=== PATIENT | female | born 1950 | race Caucasian/White ===

== ENCOUNTER → 2023-11-27 17:29 | Outpatient (REF) | payer MEDICARE, BC, SELFPAY | LOC: WDC 17:29 | PROVIDERS: ATTENDING PHYSICIAN Family Medicine | DX: Z12.31 Encounter for screening mammogram for malignant neoplasm of breast (principal) | CPT/HCPCS: 77063; 77067 ==

== ENCOUNTER → 2023-12-30 07:27 | Outpatient (REF) | payer MEDICARE, BC, SELFPAY ==
[2023-12-30 08:25] LABS: % Basophils 1.5 % (0-2); % Eosinophils 2.5 % (0-6); % Immature Granulocytes 0.2 % (0-0.5); % Lymphocytes 32.3 % (20.5-51.1); % Monocytes 6.1 % (1.7-9.3); % Neutrophils 57.4 % (42.2-75.2); Absolute Basophils 0.1 10^3/uL (0-0.2); Absolute Eosinophils 0.1 10^3/uL (0-0.7); Absolute Lymphocytes 1.5 10^3/uL (1.2-3.4); Absolute Monocytes 0.3 10^3/uL (0.1-0.6); Absolute Neutrophils 2.7 10^3/uL (1.4-6.5); Hemoglobin 13.3 g/dL (12.0-16.0); Mean Corp Hgb Conc. 33.3 g/dL (33.0-37.0); Mean Corpuscular Hgb 30.4 pg (27.0-31.0); Mean Corpuscular Volume 91.3 fL (81.0-99.0); Mean Platelet Volume 9.9 fL (7.4-10.4); Nucleated Red Blood Cells % 0 %; Platelet Count 318 10^3/uL (130-400); Red Blood Cell Count 4.38 10^6/uL (4.20-5.40); Red Cell Dist. Width 13.2 % (11.5-14.5); White Blood Cell Count 4.7 10^3/uL (4.8-10.8)
[2023-12-30 09:03] LABS: ALT (SGPT) 22 U/L (0-35); AST (SGOT) 26 U/L (14-36); Albumin 4.1 g/dl (3.5-5.0); Alkaline Phosphatase 64 U/L (38-126); Blood Urea Nitrogen 18 mg/dl (7-17); Calcium 9.9 mg/dl (8.4-10.2); Carbon Dioxide 29 mmol/L (22-30); Chloride 105 mmol/L (98-107); Glucose 91 mg/dl (70-99); HDL Cholesterol 61 mg/dl; LDL Cholesterol, Calculated 111 mg/dl; Sodium 141 mmol/L (135-145); Total Bilirubin 0.4 mg/dl (0.2-1.3); Total Cholesterol 187 mg/dl (50-199); Total Protein 6.4 g/dl (6.3-8.2); Triglyceride 79 mg/dl (10-149); Very Low Density Lipoprotein 15 mg/dl (0-30); eGFR > 60.00
[2023-12-30 09:37] LABS: TSH Reflex To Free T4 1.57 uIU/ml (0.47-4.68)
== END ==
LOC: REG 07:27
PROVIDERS: ATTENDING PHYSICIAN Family Medicine
DX: E78.2 Mixed hyperlipidemia (principal); R53.83 Other fatigue
CPT/HCPCS: 36415; 80053; 80061; 84443; 85025

== ENCOUNTER → 2024-01-23 08:19 | Outpatient (REF) | payer MEDICARE, BC, SELFPAY | LOC: RAD 08:19 | PROVIDERS: ATTENDING PHYSICIAN Family Medicine | DX: Z78.0 Asymptomatic menopausal state (principal) | CPT/HCPCS: 77080 ==

== ENCOUNTER 2024-08-19 16:32 | Emergency (ER) | payer OTHER, SELFPAY ==
[2024-08-19 16:38] VITALS: BP 158/81
--- NOTE | 2024-08-19 16:46 | ED.GENMED ---
ED Provider Triage
-
Patient seen by provider in Triage?: Seen in Triage
Attestation: A medical screening examination has been initiated by a qualified medical provider. Based on the assessment performed at this time, it has been determined that an emergent medical condition may exist and the patient has been informed
that further medical evaluation and possible additional diagnostic testing may be needed.
HPI: 74-year-old female presents to the ER complaining of left groin pain. She denies any injury but noticed over the past several days her left leg has been giving out and over the weekend got worse. She does feel pain in her left groin that is
not made worse with movement. She denies any obvious swelling. She denies any pain in her back. She denies any abdominal pain nausea vomiting. She denies any frequency urgency or dysuria.
Will obtain left hip and pelvis x-ray
GENERAL: Alert , in no apparent distress
EYE: No visual abnormalities.
NECK: Trachea midline
ENT: No visible abnormalities.
LUNGS: No acute respiratory distress
NEUROLOGICAL: Alert and oriented
SKIN: Skin intact. No visible changes.
MUSCULOSKELETAL: Moving extremities normally
PSYCH: Normal and appropriate interaction.
This is a medical evaluation conducted in person to initiate diagnostic evaluation and provide initial therapeutics. Please see further documentation by the treating clinician.
History of Present Illness
General
Chief Complaint: Musculo-Skeletal Complaint
Source: patient
Exam Limitations: none
Time Seen by Provider: 08/19/24 18:31
Nursing documentation reviewed up to this point in time: agreed with
History of Present Illness
History of Present Illness:
74 yr old female presents to the ER complaint of left groin pain intermittently for past 10d. She has minimal discomfort but reports leg will ' just give out.' She denies any injury fever chills swelling. She denies any redness fevers. She
denies any numbness tingling to lower leg. Denies any back pain.
Past History
Past History
ED Past Medical History: CVA, Seizures (Atypical seizure disorder) and Other (Crohn's disease, gout,, retinitis pigmentosa, glaucoma, Gi bleedinig)
ED Past Surgical History: None
Social History
Tobacco: Non-smoker
Alcohol: None
Personal:
Living: with family
Family History
Family History: CAD and Other (Her mother had a stroke at 62 and there is history of coronary disease in the family)
Review of Systems
Review of Systems
Allergies reviewed?: Yes
Constitutional: Reports no symptoms; Denies fever, fatigue or chills
Musculoskeletal: Reports other (intermittent mild discomfort in left groin )
Skin: Reports no symptoms
Neurological: Reports no symptoms
Hematologic/Lymphatic: Reports no symptoms
Psychiatric: Reports no symptoms
Phy Exam
General Physical Exam
General Presentation: no apparent distress
General Skin: warm and dry
General Habitus: normal
General Mental: alert
General Hydration: appears well hydrated
Neurological Exam
Neurological Exam: alert and oriented x3
Musculoskeletal Exam
Musculoskeletal Exam: other (lle with strong pulses ; no pain with ROM, full internal and external rotation of hip; no erythema no swelling to area ; nml distal senation , full strength to left leg )
Skin Exam
Skin Exam: normal color and warm/dry
Psychiatric Exam
Psychiatric Exam: normal mood/affect
Course
Orders/Labs/Results
Orders:
Orders
08/19/24 16:46
Hip, Left 2-3 Views [CR Hip - LT w/wo Pel 2-3 Vw*] Urgent
Comment:
Reason For Exam: left groin pain
Include a pelvis x-ray?: Yes
Vital Signs
Initial and Last Documented VS:
Initial Vital Signs
Temp Pulse Resp BP Pulse Ox
98.3 F 80 16 158/81 98
08/19/24 16:38 08/19/24 16:38 08/19/24 16:38 08/19/24 16:38 08/19/24 16:38
Last Documented Vital Signs
Temp Pulse Resp BP Pulse Ox
98.3 F 80 16 158/81 98
08/19/24 16:38 08/19/24 16:38 08/19/24 16:38 08/19/24 16:38 08/19/24 16:38
MDM/Problems Addressed
MDM/Problems Addressed:
Patient complains of mild discomfort in left groin intermittently for the past several days, she does report sometimes left leg gives out.
Denies any recent trauma fever or chills. She is in no acute distress nontoxic appearing x-rays are negative for acute fracture. She has good range of motion to left hip including normal internal/external rotation but no obvious swelling strong
distal pulses
Considerations include possible labrum injury, arthritis will DC with Ortho follow-up
*Radiology
Radiology exam reviewed: radiology read reviewed
*Critical Care Note
Total Time (30-74mins, 75-104mins- exclusive of procedures): Not Applicable
ED Attending Note
-
Portions of this chart may have been created with voice recognition software.� Occasional wrong word or��sound alike� substitutions may have occurred due to the inherent limitations of voice recognition software.
Discharge Plan
Departure
Patient Disposition: Home (Routine Discharge)
Date of Disposition: 08/19/24
Time of Disposition: 18:35
Patient with high blood pressure during this ER visit?: No
Condition: Fair
Discharge Problem:
Groin pain
Instructions: Muscle and Bone Pain (DC), BLOOD PRESSURE
Prescriptions:
No Action
furosemide 40 MG tablet
40 mg PO BID
Patient Comments:
pt. states that this medication is ordered BID but she only takes it PRN.
lacosamide [Vimpat] 100 MG tablet
150 mg PO BID
aspirin 81 MG tablet,chewable
81 mg PO DAILY
Patient Comments:
as needed
lorazepam 1 MG tablet
1 mg PO PRN PRN (Reason: post seizures)
vitamin B complex 1 EACH tablet
1 tab PO DAILY
Fish Oil/Dha/Epa
1 tab PO DAILY
calcium carbonate-vitamin D3 [Oyster Shell Calcium-Vit D3] 500 MG tablet
1 tab PO BID
ibuprofen 600 MG tablet
600 mg PO
levofloxacin 500 MG tablet
500 mg PO DAILY Qty: 4 0RF
Referrals:
Johnny Gresham MD [Active] -
Activity Restrictions/Additional Instructions:
Follow up with orthopedic doctor in the next several days.
Yoy may take Ibuprofen /tylenol as needed.
Return if any worsening of symptoms.
Interventions
Interventions:
*Risk Screen - Suicide Last Done: 08/19/24 16:38
*Neglect/Abuse Screening Last Done: 08/19/24 16:38
Discharge Date and Time
Print Language: ROMANSH
== END 2024-08-19 18:51 | disposition home or self-care (01) ==
LOC: EMR 16:32
PROVIDERS: EMERGENCY PHYSICIAN Emergency Medicine; FAMILY PHYSICIAN Family Medicine
DX: R10.32 Left lower quadrant pain (principal); Z86.73 Personal history of transient ischemic attack (TIA), and cerebral infarction without residual deficits; Z87.19 Personal history of other diseases of the digestive system
CPT/HCPCS: 99283; 73502

== ENCOUNTER → 2024-11-27 17:35 | Outpatient (REF) | payer OTHER, SELFPAY | LOC: WDC 17:35 | PROVIDERS: ATTENDING PHYSICIAN Family Medicine | DX: Z12.31 Encounter for screening mammogram for malignant neoplasm of breast (principal) | CPT/HCPCS: 77063; 77067 ==

== ENCOUNTER → 2025-03-06 08:35 | Outpatient (REF) | payer OTHER, SELFPAY ==
[2025-03-06 09:33] LABS: Hematocrit 42.2 % (37.0-47.0); Hemoglobin 13.9 g/dL (12.0-16.0); Mean Corp Hgb Conc. 32.9 g/dL (33.0-37.0); Mean Corpuscular Volume 92.1 fL (81.0-99.0); Nucleated Red Blood Cells % 0 %; Platelet Count 323 10^3/uL (130-400); Red Cell Dist. Width 13.2 % (11.5-14.5)
[2025-03-06 11:22] LABS: ALT (SGPT) 14 U/L (0-35); AST (SGOT) 21 U/L (14-36); Albumin 4.4 g/dl (3.5-5.0); Alkaline Phosphatase 75 U/L (38-126); Blood Urea Nitrogen 23 mg/dl (7-17); Calcium 10.8 mg/dl (8.4-10.2); Carbon Dioxide 31 mmol/L (22-30); Chloride 103 mmol/L (98-107); Glucose 91 mg/dl (70-99); HDL Cholesterol 72 mg/dl; LDL Cholesterol, Calculated 138 mg/dl; Potassium 4.9 mmol/L (3.5-5.1); Sodium 139 mmol/L (135-145); Total Protein 7.0 g/dl (6.3-8.2); Very Low Density Lipoprotein 14 mg/dl (0-30); eGFR 59.49
== END ==
LOC: REG 08:35
PROVIDERS: ATTENDING PHYSICIAN Family Medicine
DX: R09.89 Other specified symptoms and signs involving the circulatory and respiratory systems (principal); R89.9 Unspecified abnormal finding in specimens from other organs, systems and tissues; E78.2 Mixed hyperlipidemia; R53.83 Other fatigue
CPT/HCPCS: 36415; 80053; 80061; 84443; 85025